=== PATIENT | male | born 1990 | race Two or more races ===

== ENCOUNTER 2018-06-03 06:43 | Emergency (ER) | payer MEDICAID, OTHER ==
[~2018-06-03] VITALS: Ht 180.3 cm; Wt 86.2 kg
[~2018-06-03 06:43] MED LIST: IPRA0.2S6 NEB; LEVA0.6320 NEB; MONT10TA22 PO; PRED-170 PO; PRED10TA PO; PRED20TA PO
[2018-06-03] MEDS ORDERED: ONDANSETRON 4 MG/2 ML VIAL IV ONE (07:00)
[2018-06-03] MEDS ORDERED: IV NORMAL SALINE 1000 ML BAG IV ONE (07:00)
[2018-06-03] MEDS ORDERED: KETOROLAC TROMETHAMINE 15 MG INJ IV ONE (07:00)
[2018-06-03] MEDS ORDERED: KETOROLAC TROMETHAMINE 30 MG INJ ONE (07:05)
[2018-06-03] MEDS ORDERED: ONDANSETRON 4 MG/2 ML VIAL ONE (07:05)
[2018-06-03 07:16] LABS: BASOPHILS % (AUTO) 0.8 % (0.0-2.0); HEMOGLOBIN 15.4 g/dL (12.5-16.3); LYMPHOCYTES # (AUTO) 2.2 K/uL (20.0-40.0); LYMPHOCYTES % (AUTO) 38.8 % (20.5-51.5); MEAN CORPUSCULAR HEMOGLOBIN 28.6 uug (23.8-33.4); MEAN CORPUSCULAR HGB CONC 34 g/dL (32.5-36.3); MEAN CORPUSCULAR VOLUME 83.5 fL (73.0-96.2); MONOCYTES # (AUTO) 0.3 K/uL (2.0-10.0); MONOCYTES % (AUTO) 5.2 % (0.0-11.0); NEUTROPHILS # (AUTO) 3.2 K/uL (1.8-8.9); NEUTROPHILS % (AUTO) 55.2 % (38.5-71.5); PLATELET COUNT (AUTO) 185 K/uL (152-348); RED BLOOD CELL COUNT(AUTO) 5.39 MIL/uL (4.06-5.63); WHITE BLOOD COUNT (AUTO) 5.7 K/uL (3.6-10.2)
[2018-06-03 07:23] LABS: *BILIRUBIN,URIN NEGATIVE (NEGATIVE); *BLOOD, URINE NEGATIVE (NEGATIVE); *CLARITY,URINE CLEAR (CLEAR); *COLOR,URINE YELLOW (YELLOW); *KETONES,URINE NEGATIVE (NEGATIVE); *UROBILINOGEN,URINE 0.2 E.U./dl (NORMAL); LEUKOCYTE ESTERASE ,URINE NEGATIVE (NEGATIVE); NITRITE, URINE NEGATIVE (NEGATIVE); PH,URINE 5.5 (5.0-8.0); UGLUCOSE NEGATIVE (NEGATIVE)
[2018-06-03 07:23] LABS: CARBON DIOXIDE 24 mmol/L (21-32); CHLORIDE 105 mmol/L (98-107); CREATININE 0.7 mg/dL (0.6-1.3); GLUCOSE 98 mg/dL (74-106); POTASSIUM 3.9 mmol/L (3.5-5.1); UREA NITROGEN, BLOOD 16 mg/dL (7-18)
[2018-06-03 07:25] LABS: BACTERIA,URINE FEW /HPF (NONE SEEN); RBC,URINE NONE SEEN /HPF (0-3); SQUAMOUS EPITHELIAL CELL,UR FEW /HPF (NONE SEEN); WBC,URINE NONE SEEN /HPF (0-3)
[2018-06-03 07:29] LABS: ALANINE AMINOTRANSFERASE 31 U/L (16-63); ALKALINE PHOSPHATASE 114 U/L (50-136); ASPARTATE AMINOTRANSFERASE 14 U/L (15-37); BILIRUBIN,DIRECT 0.1 mg/dL (0.0-0.2); BILIRUBIN,TOTAL 0.6 mg/dL (0.2-1.0); LIPASE 69 U/L (73-393); TOTAL PROTEIN, SERUM 7.6 g/dL (6.4-8.2)
--- NOTE | 2018-06-03 08:07 | NUR ---
IV removed. Catheter intact and site benign. Pressure and 4x4 gauze applied to site. No bleeding noted.
--- NOTE | 2018-06-03 08:07 | NUR ---
Patient discharged to home in stable conditon. Written and verbal after care instructions given. Patient verbalizes understanding of instructions.
[2018-06-03 08:08] VITALS: BP 118/77
== END 2018-06-03 08:08 | disposition home or self-care (01) ==
LOC: ER 06:45
DX: R19.7 Diarrhea, unspecified (principal); R11.10 Vomiting, unspecified; R10.32 Left lower quadrant pain; J45.909 Unspecified asthma, uncomplicated; Z79.899 Other long term (current) drug therapy
CPT/HCPCS: 36415; 80048; 80076; 81001; 83690; 85025; 96361; 96374; 96375; 99283; J1885; J2405; A4663; J7030

== ENCOUNTER 2018-08-25 11:39 | Emergency (ER) | payer BC, MEDICAID ==
[~2018-08-25] VITALS: Ht 180.3 cm; Wt 86.2 kg
[~2018-08-25 11:39] MED LIST changes: -MONT10TA22 PO; -PRED-170 PO; -PRED10TA PO; -PRED20TA PO
--- NOTE | 2018-08-25 11:50 | NUR ---
PT A/OX4, PRESENTS TO THE ER C/O LLQ ABD PAIN AND DIARRHEA X 3 DAYS. ABD IS NON-DISTENDED IN APPEARANCE, HYPERACTIVE IN ALL 4 QUADRANTS, SOFT ON PALPATION. ABD PAIN IS NON-PROVOKING, ACHING IN QUALITY, DOES NOT RADIATE, 6/10, CONSTANT. PT DENIES N/V. VSS. PT DENIES C/P, SOB, DIZZINESS, HEADACHE.
--- NOTE | 2018-08-25 11:52 | NUR ---
LUCIAN GUTIERREZ AT BEDSIDE FOR MSE.
[2018-08-25 12:20] LABS: BASOPHILS % (AUTO) 0.5 % (0.0-2.0); HEMATOCRIT 43.7 % (36.7-47.1); HEMOGLOBIN 14.9 g/dL (12.5-16.3); LYMPHOCYTES # (AUTO) 2.7 K/uL (20.0-40.0); LYMPHOCYTES % (AUTO) 34.6 % (20.5-51.5); MEAN CORPUSCULAR HEMOGLOBIN 28.4 uug (23.8-33.4); MEAN CORPUSCULAR HGB CONC 34 g/dL (32.5-36.3); MEAN CORPUSCULAR VOLUME 83.6 fL (73.0-96.2); MONOCYTES # (AUTO) 0.5 K/uL (2.0-10.0); MONOCYTES % (AUTO) 6.1 % (0.0-11.0); NEUTROPHILS # (AUTO) 4.5 K/uL (1.8-8.9); NEUTROPHILS % (AUTO) 58.8 % (38.5-71.5); PLATELET COUNT (AUTO) 187 K/uL (152-348); RED BLOOD CELL COUNT(AUTO) 5.23 MIL/uL (4.06-5.63); WHITE BLOOD COUNT (AUTO) 7.7 K/uL (3.6-10.2)
[2018-08-25 12:22] LABS: *BILIRUBIN,URIN NEGATIVE (NEGATIVE); *CLARITY,URINE CLEAR (CLEAR); *COLOR,URINE YELLOW (YELLOW); *KETONES,URINE NEGATIVE (NEGATIVE); *UROBILINOGEN,URINE 0.2 E.U./dl (NORMAL); LEUKOCYTE ESTERASE ,URINE NEGATIVE (NEGATIVE); NITRITE, URINE NEGATIVE (NEGATIVE); PH,URINE 5.5 (5.0-8.0); UGLUCOSE NEGATIVE (NEGATIVE)
[2018-08-25 12:23] LABS: *BLOOD, URINE NEGATIVE (NEGATIVE)
[2018-08-25 12:24] LABS: BACTERIA,URINE FEW /HPF (NONE SEEN); RBC,URINE NONE SEEN /HPF (0-3); SQUAMOUS EPITHELIAL CELL,UR FEW /HPF (NONE SEEN); WBC,URINE NONE SEEN /HPF (0-3)
[2018-08-25 12:28] LABS: CREATININE 0.8 mg/dL (0.6-1.3)
[2018-08-25 12:33] LABS: BILIRUBIN,DIRECT 0.2 mg/dL (0.0-0.2); BILIRUBIN,TOTAL 0.9 mg/dL (0.2-1.0); TOTAL PROTEIN, SERUM 7.5 g/dL (6.4-8.2)
--- NOTE | 2018-08-25 12:56 | NUR ---
LUCIAN GUTIERREZ AT BEDSIDE FOR PT UPDATE.
--- NOTE | 2018-08-25 13:09 | NUR ---
Patient discharged to home in stable conditon. Written and verbal after care instructions given. Patient verbalizes understanding of instructions. PT D/C W/ PRESCRIPTION. ALL BELONGINGS W/ PT. PT SELF-AMBULATED W/O DIFFICULTY.
[2018-08-25 13:10] VITALS: BP 126/72
== END 2018-08-25 13:18 | disposition home or self-care (01) ==
LOC: ER 11:39
DX: K52.9 Noninfective gastroenteritis and colitis, unspecified (principal); J45.909 Unspecified asthma, uncomplicated; Z79.899 Other long term (current) drug therapy
CPT/HCPCS: 36415; 71045; 83690; 85025; A4663

== ENCOUNTER 2018-09-20 08:03 | Emergency (ER) | payer BC, MEDICAID ==
[~2018-09-20] VITALS: Ht 180.3 cm; Wt 86.2 kg
[2018-09-20] MEDS ORDERED: ALBUTEROL SULFATE 2.5 MG/3 ML NEBU ONE (08:22)
[2018-09-20] MEDS ORDERED: IPRATROPIUM BROMIDE 0.5 MG/2.5 ML NEBU ONE (08:22)
[2018-09-20] MEDS ORDERED: ALBUTEROL SULFATE 2.5 MG/ 0.5 ML NEBU ONE (08:23)
[2018-09-20] MEDS ORDERED: IPRATROPIUM BROMIDE 0.5 MG/2.5 ML NEBU NEB ONE (08:30)
[2018-09-20] MEDS ORDERED: predniSONE 20 MG TABLET PO ONE (08:30)
[2018-09-20] MEDS ORDERED: ALBUTEROL SULFATE 2.5 MG/3 ML NEBU NEB ONE (08:30)
[2018-09-20] MEDS ORDERED: predniSONE 10 MG TABLET ONE (08:32)
[2018-09-20] MEDS ORDERED: predniSONE 50 MG TABLET ONE (08:32)
--- NOTE | 2018-09-20 08:52 | NUR ---
Patient discharged to home in stable conditon. Written and verbal after care instructions given. Patient verbalizes understanding of instructions.pt says feels better and is ready to go home.
[2018-09-20 08:53] VITALS: BP 109/71
== END 2018-09-20 08:54 | disposition home or self-care (01) ==
LOC: ER 08:03
DX: J45.909 Unspecified asthma, uncomplicated (principal); Z79.899 Other long term (current) drug therapy
CPT/HCPCS: 93005; 94664; 99283; J7512 ×2; A4663; J3590